=== PATIENT | female | born 1960 | race African-American/Black ===

== ENCOUNTER 2017-08-10 10:54 | Emergency (ER) | payer OTHER ==
[2017-08-10 11:38] LABS: #Basophils 0.1 thou/uL (0.0-0.2); #Eosinphils 0.2 thou/uL (0.0-0.7); #Lymphocytes 1.6 thou/uL (1.20-3.40); #Monocytes 0.8 thou/uL (0.11-0.59); #Neutrophils 5.6 thou/uL (1.40-6.50); %Basophils 0.8 % (0.0-1.0); %Eosinophils 2.3 % (0.0-10.0); %Lymphocytes 19.8 % (21.0-51.0); %Monocytes 9.1 % (0.0-10.0); %Neutrophils 68.1 % (42.0-75.0); Hemoglobin 13.6 g/dL (12.0-16.0); Mean Corpuscular HGB CONC 31.5 g/dL (32.0-36.0); Mean Corpuscular Hemoglobin 25.8 pg (27.0-31.0); Mean Platelet Volume 8.4 fL (7.4-10.4); Platelet Count 231 thou/uL (130-400); RBC Distribution Width 13.4 % (11.5-14.5); Red Blood Cell (RBC) Count 5.27 mill/uL (4.20-5.40); White Blood Cell (WBC) Count 8.3 thou/uL (4.8-10.8)
[2017-08-10 11:54] LABS: CKMB 0.7 ng/mL (0-6.6); Troponin I Less than 0.010 ng/mL (< 0.028)
[2017-08-10 11:59] LABS: ALT (SGPT) 19 U/L (8-55); AST (SGOT) 16 U/L (5-34); Albumin 4.1 g/dL (3.5-5.0); Alkaline Phosphatase 90 U/L (40-150); Anion Gap 15 mmol/L (10-20); BUN (Urea Nitrogen) 10 mg/dL (9.8-20.1); Bilirubin, Total 0.6 mg/dL (0.2-1.2); CK (CPK) 105 U/L (29-168); Calc. Creatinine Clearance 0 mL/min (70-130); Calcium 9.6 mg/dL (7.8-10.44); Carbon Dioxide 22 mmol/L (22-29); Chloride 106 mmol/L (98-107); Estimated GFR-MDRD 43; Globulin 3.5 g/dL (2.4-3.5); Glucose 120 mg/dL (70-105); Lipase 13 U/L (8-78); Potassium 3.7 mmol/L (3.5-5.1); Protein, Total 7.6 g/dL (6.0-8.3); Sodium 139 mmol/L (136-145)
--- NOTE | 2017-08-10 12:17 | RAD ---
PORTABLE AP CHEST X-RAY: 08/10/2017 HISTORY: Chest pain. COMPARISON: None available. FINDINGS: The cardiac silhouette and pulmonary vasculature are within normal limits. The lungs are clear. Deg enerative changes are noted in the spine. There is bilateral acromioclavicular joint osteoarthrosis with inferior osteophytes involving each acromion. IMPRESSION: No acute cardiopulmonary process. POS: [facility]
--- NOTE | 2017-09-18 22:22 | EKG ---
Test Reason : Blood Pressure : / mmHG Vent. Rate : 112 BPM Atrial Rate : 112 BPM P-R Int : 150 ms QRS Dur : 072 ms QT Int : 314 ms P-R-T Axes : 042 028 013 degrees QTc Int : 428 ms Sinus tachycardia Otherwise normal ECG Confirmed by HENRY BOWER D.O. ([id number]), publishing editor PEARL GARAY ([id number] on 09/18/2017 10:22:10 PM Referred By: Confirmed By:HENRY BOWER D.O.
== END 2017-08-10 13:26 | disposition home or self-care (01) ==
LOC: ERS 10:54
DX: R07.9 Chest pain, unspecified (principal); I10 Essential (primary) hypertension; E78.5 Hyperlipidemia, unspecified; Z79.82 Long term (current) use of aspirin; Z79.899 Other long term (current) drug therapy
CPT/HCPCS: 36415; 71045; 80053; 82553; 83690; 84484; 85025; 93005

== ENCOUNTER 2017-12-15 11:27 | Outpatient (CLI) | payer OTHER ==
[2017-12-15 12:59] LABS: #Eosinphils 0.2 thou/uL (0.0-0.7); #Lymphocytes 2.3 thou/uL (1.20-3.40); #Monocytes 0.7 thou/uL (0.11-0.59); #Neutrophils 4.1 thou/uL (1.40-6.50); %Basophils 0.6 % (0.0-1.0); %Eosinophils 2.9 % (0.0-10.0); %Monocytes 9.9 % (0.0-10.0); %Neutrophils 55.6 % (42.0-75.0); Hemoglobin 14.3 g/dL (12.0-16.0); Mean Corpuscular HGB CONC 33.4 g/dL (32.0-36.0); Mean Corpuscular Hemoglobin 26.6 pg (27.0-31.0); Mean Corpuscular Volume 79.6 fL (78.0-98.0); Mean Platelet Volume 10.1 fL (7.4-10.4); Platelet Count 198 thou/uL (130-400); RBC Distribution Width 13.1 % (11.5-14.5); Red Blood Cell (RBC) Count 5.36 mill/uL (4.20-5.40); White Blood Cell (WBC) Count 7.3 thou/uL (4.8-10.8)
[2017-12-15 13:17] LABS: Anion Gap 10 mmol/L (10-20); BUN (Urea Nitrogen) 11 mg/dL (9.8-20.1); Calc. Creatinine Clearance 0 mL/min (70-130); Calcium 10.1 mg/dL (7.8-10.44); Carbon Dioxide 25 mmol/L (22-29); Chloride 107 mmol/L (98-107); Estimated GFR-MDRD 59; Glucose 110 mg/dL (70-105); Potassium 3.6 mmol/L (3.5-5.1); Sodium 138 mmol/L (136-145)
--- NOTE | 2017-12-17 15:08 | EKG ---
Test Reason : Blood Pressure : / mmHG Vent. Rate : 086 BPM Atrial Rate : 086 BPM P-R Int : 166 ms QRS Dur : 072 ms QT Int : 356 ms P-R-T Axes : 059 057 035 degrees QTc Int : 426 ms Normal sinus rhythm Normal ECG When compared with ECG of 10-AUG-2017 10:57, No significant change was found Confirmed by DAKOTAH CARDOSO MD ([id number] on 12/17/2017 3:07:46 PM Referred By: AIDEN Confirmed By:DAKOTAH CARDOSO MD
== END 2017-12-15 11:28 | disposition home or self-care (01) ==
LOC: LABBT 11:27
PROVIDERS: ATTEND Orthopaedic Surgery
DX: Z01.818 Encounter for other preprocedural examination (principal); G56.02 Carpal tunnel syndrome, left upper limb
CPT/HCPCS: 80048; 85025; 93005; 93010

== ENCOUNTER 2017-12-22 07:59 | Day surgery (SDC) | payer OTHER ==
[2017-12-15 11:46] VITALS: BMI 32.5
--- NOTE | 2017-12-21 10:09 | HP ---
HISTORY OF PRESENT ILLNESS: The patient is a 57-year-old female with a greater than 1 year history o f pain and tingling in her left hand without injury. She has had persistent symptoms despite rest, r estriction of activities including injection and splinting. 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 She has had previous right carpal tunnel release in [place] several years ago with goo d results. PAST MEDICAL HISTORY: The patient has history of hypertension, thyroid cancer, hyperlipidemia, arthr itis, stage 2 kidney disease and reflux. CURRENT MEDICATIONS: Include estradiol, amlodipine, simvastatin, Synthroid, Zantac, Tums, 81 mg aspi rin. ALLERGIES: She has no known allergies. FAMILY HISTORY/SOCIAL HISTORY/REVIEW OF SYSTEMS: Otherwise, unremarkable except for a history of imp ingement syndrome which has been treated with cortisone injections in her left shoulder. PHYSICAL EXAMINATION: GENERAL: Reveals a healthy female. HEENT: Unremarkable. NECK: Supple. CHEST: Clear. HEART: Regular rate and rhythm. ABDOMEN: Soft, nontender. PELVIC/RECTAL/BREAST: Exams are deferred. EXTREMITIES: Pertinent findings are to the left wrist. There is no swelling. There is no point ten derness. There is full range of motion. There is a positive Tinel sign and positive Phalen's test a nd decreased sensation in the median nerve distribution. Nerve conduction studies reveal moderately severe left carpal tunnel syndrome. IMPRESSION: 1. Left carpal tunnel syndrome. 2. History of hypertension. 3. History of kidney disease. 4. History of thyroid cancer. PLAN: Endoscopic possible open left carpal tunnel release. The nature of the surgery, length of rec overy, and potential complications such as infection, loss of motion, incomplete relief, nerve injury , recurrence, and need for additional treatment or repeat surgery have been discussed in detail.
[2017-12-22] MEDS ORDERED: CEFAZOLIN/Water 2 GM/20 ML SYRINGE ONE (08:57)
[2017-12-22] MEDS ORDERED: Fentanyl 100 MCG/2 ML VIAL ONE ×2 (09:57→11:21)
[2017-12-22] MEDS ORDERED: Lidocaine 1% (PF) 30 ML VIAL ONE (10:02)
--- NOTE | 2017-12-22 11:48 | OP ---
DATE OF PROCEDURE: 12/22/2017 SURGEON: Tutu Stanley M.D. ANESTHESIA: General. PREOPERATIVE DIAGNOSIS: Left carpal tunnel syndrome. POSTOPERATIVE DIAGNOSIS: Left carpal tunnel syndrome. PROCEDURE PERFORMED: Left endoscopic carpal tunnel release. NARRATIVE REPORT: After satisfactory anesthesia was induced in the supine position, the patient was prepped and draped in routine manner. Left arm was elevated, exsanguinated with an Esmarch bandage, and the tourniquet inflated to 250 mmHg. A 2 cm transverse incision was made in the proximal wrist f lexion crease, carried down to subcutaneous tissues. Bleeding points controlled with the Bovie caute ry. Using sharp and blunt dissection, a distally based flap at deep forearm fascia was developed and retracted distally. Palmaris longus tendon was retracted radially. Proximal edge of the deep forea rm fascia was split under direct visualization to make sure there was no proximal impingement of the median nerve. Synovium elevator was introduced beneath the transverse carpal ligament and synovium c leaned from the undersurface. Carpal tunnel dilators were inserted. The Tujiae endoscopic carpal t unnel system was introduced beneath the transverse carpal ligament in line with the ring finger. The distal edge of the ligament was easily identified and then divided in a distal proximal direction by pulling the trigger of the assembly, engaging the knife, and withdrawing the scope proximally. This was done in several stages to make sure there was complete division of the transverse carpal ligamen t, which was documented with the video printer. After withdrawing the scope, a carpal tunnel dilator could be inserted into the carpal tunnel and there was markedly improved passage and subcutaneous po sition of the instrument. The scope was reintroduced into the carpal tunnel. There was wide separat ion of the two leaves of the transverse carpal ligament. The tourniquet was released after 5 minutes . There was no excessive bleeding and the scope was withdrawn. The wound was thoroughly irrigated a nd then closed with running subcuticular 3-0 nylon. A sterile dressing was applied and the patient i mmobilized in a Velcro wrist splint. She was awakened, taken to recovery room in stable condition. There were no apparent intraoperative complications. The estimated blood loss was negligible. The patient will be discharged home in satisfactory condition on ice, elevation, and given written wo und care instructions. She is given a prescription for [place] 5 for pain, 30 tablets. She will be re checked in my office in approximately 2 weeks or sooner if there any problems prior to that time.
== END 2017-12-22 12:45 | disposition home or self-care (01) ==
LOC: SDC 07:59
PROVIDERS: ATTEND Orthopaedic Surgery
PROC: 01N54ZZ Release Median Nerve, Percutaneous Endoscopic Approach (ICD-10-PCS; principal; 2017-12-22)
DX: G56.02 Carpal tunnel syndrome, left upper limb (principal); I12.9 Hypertensive chronic kidney disease with stage 1 through stage 4 chronic kidney disease, or unspecified chronic kidney disease; N18.2 Chronic kidney disease, stage 2 (mild); E78.5 Hyperlipidemia, unspecified; K21.9 Gastro-esophageal reflux disease without esophagitis; Z85.850 Personal history of malignant neoplasm of thyroid; Z79.82 Long term (current) use of aspirin; Z79.899 Other long term (current) drug therapy
CPT/HCPCS: 96374; J2001; J3010